=== PATIENT | female | born 1965 | race Two or more races ===

== ENCOUNTER 2016-08-25 12:33 | Emergency (ER) | payer OTHER ==
[2016-08-25 12:44] VITALS: BMI 26.2
--- NOTE | 2016-08-25 13:39 | PDOC ---
*Physical Exam - Vital Signs Last Vital Signs Temp Pulse Resp BP Pulse Ox 98.3 F 63 18 129/77 99 08/25/16 12:40 08/25/16 12:40 08/25/16 12:40 08/25/16 12:40 08/25/16 12:40 - Physical Exam Comments: 08/25/16 13:39 MIDLEVEL NOTE Pt seen by Midlevel Provider under my direct supervision. Pt interviewed and examined. Ancillary studies reviewed. I agree with plan as outlined by Midlevel Provider. 08/25/16 15:20 Laboratory Results - last 24 hr 08/25/16 13:46 Urine Color Straw Urine Appearance Clear Urine pH 7.0 D Ur Specific [place] 1.011 Urine Protein Negative Urine Glucose (UA) Negative Urine Ketones Negative Urine Blood 2+ H Urine Nitrite Negative Urine Bilirubin Negative Urine Urobilinogen Negative Ur Leukocyte Esterase 3+ H Urine RBC 20 Urine WBC 7 Ur Epithelial Cells Rare US - nml pelvic sonogram in pt s/p hysterectomy *DC/Admit/Observation/Transfer Diagnosis at time of Disposition: Bacterial vaginosis - Discharge Dispostion Disposition: HOME Condition at time of disposition: Good - Prescriptions Prescriptions: Metronidazole 500 mg PO BID #14 tablet - Patient Instructions Printed Discharge Instructions: DI for Bacterial Vaginosis Additional Instructions: Please take medication as prescribed and please follow up with your PLAST[employer] MAINTENANCE.
[2016-08-25 14:01] LABS: URINE APPEARANCE CLEAR; URINE BILIRUBIN NEGATIVE (NEGATIVE); URINE COLOR STRAW; URINE GLUCOSE (UA) NEGATIVE (NEGATIVE); URINE KETONE NEGATIVE (NEGATIVE); URINE NITRITE NEGATIVE (NEGATIVE); URINE PROTEIN NEGATIVE (NEGATIVE); URINE UROBILINOGEN NEGATIVE E.U./dl (0.2-1.0)
[2016-08-25 14:08] LABS: URINE BLOOD 2+ (NEGATIVE); URINE LEUK ESTERASE 3+ (NEGATIVE)
[2016-08-25 14:09] LABS: URINE RBC 20 /hpf (0-3); URINE WBC 7 /hpf (3-5)
--- NOTE | 2016-08-25 14:27 | PDOC ---
History of Present Illness - General Chief Complaint: Pain Stated Complaint: LOWER PELVIC PAIN Time Seen by Provider: 08/25/16 13:03 History Source: Patient Exam Limitations: No Limitations - History of Present Illness Travel History: No Initial Comments: 08/25/16 13:22 51-year-old female presents to the ED with complaints of vaginal discharge for the past week and a half which she describes a yellowish green with mild fishy odor. Patient also states started to develop abdominal pain about one week ago with radiation down to her upper thighs and has mild nausea and dizziness when pain occurs. Patient denies aggravating factors for pain, recent sexual intercourse, recent UTIs, recent travel, or history of diabetes. 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 Buck was unavailable . Timing/Duration: reports: intermittent Quality: reports: moderate, cramping Abdominal Pain Onset Location: reports: suprapubic Pain Radiation: reports: other (legs) Activities at Onset: denies: none Aggravating Factors: worse with: None Alleviating Factors: worse with: None Past History - Past Medical History Allergies/Adverse Reactions: Allergies Allergy/AdvReac Type Severity Reaction Status Date / Time Penicillins Allergy Mild Rash Verified 08/25/16 12:44 lactose AdvReac Unknown Uncoded 08/25/16 12:44 Home Medications: Ambulatory Orders NK [No Known Home Medication] 08/25/16 Anemia: Yes Asthma: No Cancer: No Cardiac Disorders: No CVA: No COPD: No CHF: No Dementia: No Diabetes: No GI Disorders: Yes (ULCER, GERD) Disorders: No HTN: No Hypercholesterolemia: No Liver Disease: No Seizures: No Thyroid Disease: No - Surgical History Abdominal Surgery: No Appendectomy: No Cardiac Surgery: No Cholecystectomy: No Lung Surgery: No Neurologic Surgery: No Orthopedic Surgery: No - Immunization History Immunization Up to Date: Yes - Psycho/Social/Smoking Cessation Hx Anxiety: No Suicidal Ideation: No Smoking Status: No Smoking History: Never smoked Have you smoked in the past 12 months: No Number of Cigarettes Smoked Daily: 0 Information on smoking cessation initiated: No Hx Alcohol Use: No Drug/Substance Use Hx: No Substance Use Type: None Hx Substance Use Treatment: No Patient Lives Alone: No Review of Systems - Review of Systems Able to Perform ROS?: Yes Constitutional: No: Symptoms Reported HEENTM: No: Symptoms Reported Respiratory: No: Symptoms reported ABD/GI: Yes: Nausea, Abdominal cramping : Yes: Discharge. No: Dysuria, Flank Pain Musculoskeletal: No: Symptoms Reported Integumentary: No: Symptoms Reported Neurological: Yes: Dizziness (mild with discomfort) Hematologic/Lymphatic: No: Symptoms Reported *Physical Exam - Vital Signs Last Vital Signs Temp Pulse Resp BP Pulse Ox 98.3 F 63 18 129/77 99 08/25/16 12:40 08/25/16 12:40 08/25/16 12:40 08/25/16 12:40 08/25/16 12:40 - Physical Exam General Appearance: Yes: Nourished, Appropriately Dressed. No: Apparent Distress HEENT: negative: Pale Conjunctivae Neck: positive: Supple Respiratory/Chest: positive: Lungs Clear, Normal Breath Sounds. negative: Respiratory Distress, Accessory Muscle Use Cardiovascular: positive: Regular Rhythm, Regular Rate. negative: Murmur Female Pelvic Exam: positive: cervical os closed, normal adnexa, discharge ( yellowish greenish scott discharge with fishy odor noted in canal and around her os). negative: CMT Gastrointestinal/Abdominal: positive: Soft, Tenderness (mid suprapubic mild) Musculoskeletal: negative: CVA Tenderness Extremity: positive: Normal Capillary Refill. negative: Pedal Edema Integumentary: positive: Normal Color, Warm, Moist Neurologic: positive: Motor Strength 5/5 (ambulatory) ED Treatment Course - ADDITIONAL ORDERS Additional order review: Laboratory Results 08/25/16 13:46 Urine Color Straw Urine Appearance Clear Urine pH 7.0 D Ur Specific [place] 1.011 Urine Protein Negative Urine Glucose (UA) Negative Urine Ketones Negative Urine Blood 2+ H Urine Nitrite Negative Urine Bilirubin Negative Urine Urobilinogen Negative Ur Leukocyte Esterase 3+ H Urine RBC 20 Urine WBC 7 Ur Epithelial Cells Rare - RADIOLOGY Radiology Studies Ordered: Category Date Time Status PELVIC / BLADDER US [US] Stat Ultrasound 08/25/16 13:44 Ordered TRANSVAGINAL ULTRASOUND US [US] Stat Ultrasound 08/25/16 13:44 Ordered Medical Decision Making - Medical Decision Making 08/25/16 14:26 Patient complains of vaginal discharge with abdominal pain and mild nausea with pain patient on exam had mid suprapubic tenderness with vaginal discharge consistent with bacterial vaginosis. Patient was ordered for urine, and ultrasound to rule out other etiologies. 08/25/16 14:27 Laboratory Tests 08/25/16 13:46 Urine Blood 2+ H Urine Nitrite Negative Ur Leukocyte Esterase 3+ H Urine RBC 20 Urine WBC 7 Patient states partial hysterectomy 5 years ago secondary to fibroids. urine culture sent 08/25/16 15:49 Ultrasound shows no acute findings and will discharge patient home with Flagyl for treatment of bacterial vaginosis. 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
[2016-08-25 16:05] VITALS: BP 121/79; PULSE 75; TEMP 98
== END 2016-08-25 16:07 | disposition home or self-care (01) ==
LOC: JER 12:33
DX: N76.0 Acute vaginitis (principal); B96.89 Other specified bacterial agents as the cause of diseases classified elsewhere
CPT/HCPCS: 76830-TC; 76856-TC; 81003; 81015; 87086; 99283-25

== ENCOUNTER 2017-06-02 19:35 | Emergency (ER) | payer OTHER ==
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
[2017-06-02 19:53] VITALS: BP 120/81; PULSE 65; TEMP 97.9; BMI 25.0
[2017-06-02] MEDS ORDERED: KETOROLAC TROMETHAMINE 60 MG/2 ML VIAL IM ONE (20:04)
[2017-06-02] MEDS ORDERED: CYCLOBENZAPRINE HCL 10 MG TABLET (FP) ONE (20:05)
[2017-06-02] MEDS ORDERED: KETOROLAC TROMETHAMINE 60 MG/2 ML VIAL ONE (20:05)
[2017-06-02] MEDS ORDERED: CYCLOBENZAPRINE HCL 10 MG TABLET (FP) PO ONE (20:05)
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
== END 2017-06-02 20:09 | disposition home or self-care (01) ==
LOC: JERFT 19:35
PROC: 3E0233Z Introduction of Anti-inflammatory into Muscle, Percutaneous Approach (ICD-10-PCS; principal; 2017-06-02)
DX: V43.52XA Car driver injured in collision with other type car in traffic accident, initial encounter (principal); Y92.411 Interstate highway as the place of occurrence of the external cause; Y93.89 Activity, other specified; Y99.8 Other external cause status
CPT/HCPCS: 99281-25

== ENCOUNTER 2018-03-23 02:17 | Emergency (ER) | payer OTHER ==
[2018-03-23 04:16] VITALS: BMI 25.0
--- NOTE | 2018-03-23 04:57 | PDOC ---
History of Present Illness - History of Present Illness Initial Comments: 03/23/18 04:55 52 yo F with h/o PUD, and anemia who p/w vomiting and abdominal pain. Patient reports acute onset of non positional, non radiating, unremitting, crampy, epigatsric "fullness," beginning at 1200 AM, followed by 3 episodes of bilious, non bloody emesis. Endorses 6+ episodes of loose watery stool, with absent BPR beginning at 1200 AM. No identifiable triggers or alleviators. Patient in normal state of health before falling asleep at 1000 AM. Normal appetite and PO intake. Denies recent travel or change in diet. Patient denies F,C, palpitations, orthopnea, PND, CP, SOB, urinary complaints, , constipation, lightheadedness, weakness, sensory changes. PMHx: as noted above. H/o PUD on endoscopy. H/o nml colonoscopy. Denies chronic NSAID use. Denies h/o abdominal surgery. ROS: as noted SHx: Denies tobacco, IVDA. Social Etoh Allergies: PCN <Drake Hui - Last Filed: 03/23/18 07:24> <Demar Sherman - Last Filed: 03/23/18 12:05> - General Chief Complaint: Pain Stated Complaint: DIARRHEA Time Seen by Provider: 03/23/18 04:53 Past History - Past Medical History Anemia: Yes Asthma: No Cancer: No Cardiac Disorders: No CVA: No COPD: No CHF: No Dementia: No Diabetes: No GI Disorders: Yes (ULCER, GERD) Disorders: No HTN: No Hypercholesterolemia: No Liver Disease: No Seizures: No Thyroid Disease: No Other medical history: Fibromyalgia - Surgical History Abdominal Surgery: No Appendectomy: No Cardiac Surgery: No Cholecystectomy: No Lung Surgery: No Neurologic Surgery: No Orthopedic Surgery: No - Immunization History Immunization Up to Date: Yes - Suicide/Smoking/Psychosocial Hx Smoking Status: No Smoking History: Never smoked Have you smoked in the past 12 months: No Number of Cigarettes Smoked Daily: 0 Information on smoking cessation initiated: No Hx Alcohol Use: No Drug/Substance Use Hx: No Substance Use Type: None Hx Substance Use Treatment: No <Drake Hui - Last Filed: 03/23/18 07:24> <Demar Sherman - Last Filed: 03/23/18 12:05> - Past Medical History Allergies/Adverse Reactions: Allergies Allergy/AdvReac Type Severity Reaction Status Date / Time Penicillins Allergy Mild Rash Verified 03/23/18 04:13 lactose AdvReac Unknown Uncoded 08/25/16 12:44 Home Medications: Ambulatory Orders Pregabalin [Lyrica -] 50 mg PO BID 03/23/18 Review of Systems - Review of Systems Comments:: 03/23/18 04:56 GENERAL/CONSTITUTIONAL: No fever or chills. No weakness. HEAD, EYES, EARS, NOSE AND THROAT: No change in vision. No ear pain or discharge. No sore throat. CARDIOVASCULAR: No chest pain or shortness of breath RESPIRATORY: No cough, wheezing, or hemoptysis. GASTROINTESTINAL: + Abdominal pain, nausea, vomiting, diarrhea. No constipation. GENITOURINARY: No dysuria, frequency, or change in urination. MUSCULOSKELETAL: No joint or muscle swelling or pain. No neck or back pain. SKIN: No rash NEUROLOGIC: No headache, vertigo, loss of consciousness, or change in strength/ sensation. ENDOCRINE: No increased thirst. No abnormal weight change HEMATOLOGIC/LYMPHATIC: No anemia, easy bleeding, or history of blood clots. ALLERGIC/IMMUNOLOGIC: No hives or skin allergy. <Drake Hui - Last Filed: 03/23/18 07:24> *Physical Exam - Vital Signs Last Vital Signs Temp Pulse Resp BP Pulse Ox 98.7 F 106 H 20 93/62 100 03/23/18 04:13 03/23/18 04:13 03/23/18 04:13 03/23/18 04:13 03/23/18 04:13 - Physical Exam Comments: 03/23/18 04:56 GENERAL: Pale appearing. Awake, alert, and fully oriented, in no acute distress HEAD: No signs of trauma, normocephalic, atraumatic EYES: PERRLA, EOMI, sclera anicteric, conjunctiva clear ENT: Hearing grossly normal, nares patent, oropharynx clear without exudates. Moist mucosa NECK: Normal ROM, supple, no lymphadenopathy, JVD, or masses LUNGS: No distress, speaks full sentences, clear to auscultation bilaterally HEART: Regular rate and rhythm, normal S1 and S2, no murmurs, rubs or gallops, peripheral pulses normal and equal bilaterally. ABDOMEN: + Epigastirc ttp, and RUQ ttp. Soft, NDS, normoactive bowel sounds. No guarding, no rebound, no rigidity. No masses. Neg CVA ttp. EXTREMITIES : Normal inspection, Normal range of motion, no edema. No clubbing or cyanosis. SKIN: Warm, Dry, normal turgor, no rashes or lesions noted <Drake Hui - Last Filed: 03/23/18 07:24> - Vital Signs Last Vital Signs Temp Pulse Resp BP Pulse Ox 98.7 F 76 16 100/57 L 100 03/23/18 04:13 03/23/18 08:07 03/23/18 08:07 03/23/18 08:07 03/23/18 08:07 <Demar Sherman - Last Filed: 03/23/18 12:05> ED Treatment Course - LABORATORY CBC & Chemistry Diagram: 03/23/18 05:39 03/23/18 05:39 <Drake Hui - Last Filed: 03/23/18 07:24> - LABORATORY CBC & Chemistry Diagram: 03/23/18 05:39 03/23/18 05:39 - ADDITIONAL ORDERS Additional order review: Laboratory Results 03/23/18 03/23/18 05:39 05:39 Sodium 142 Potassium 3.4 L Chloride 107 Carbon Dioxide 29 Anion Gap 7 L BUN 21 H Creatinine 0.9 Creat Clearance w eGFR > 60 Random Glucose 106 Calcium 9.0 Total Bilirubin 0.9 AST 7 L ALT 21 Alkaline Phosphatase 86 Troponin I < 0.02 Total Protein 7.2 Albumin 3.8 Lipase 129 03/23/18 05:39 RBC 4.13 MCV 92.0 MCHC 32.9 RDW 13.7 MPV 8.2 Neutrophils % 89.1 H D Lymphocytes % 2.5 L D Monocytes % 7.6 Eosinophils % 0.6 Basophils % 0.2 - Medications Given in the ED: ED Medications Discontinued Medications Generic Name Dose Route Start Last Admin Trade Name Freq PRN Reason Stop Dose Admin Al Hydroxide/Mg Hydroxide 30 ml 03/23/18 05:10 03/23/18 05:59 Mylanta Oral Suspension - PO 03/23/18 05:11 30 ml ONCE ONE Administration Famotidine/Sodium Chloride 20 mg in 50 mls @ 100 mls/hr 03/23/18 05:10 05:59 Pepcid 20 Mg Premixed Ivpb - IVPB 03/23/18 05:39 100 mls/hr ONCE ONE Administration Sodium Chloride 1,000 mls @ 1,000 mls/hr 03/23/18 05:10 03/23/18 05:40 Normal Saline - IV 03/23/18 06:09 1,000 mls/hr ASDIR STA Administration Sodium Chloride 1,000 mls @ 1,000 mls/hr 03/23/18 06:47 03/23/18 06:58 Normal Saline - IV 03/23/18 07:46 1,000 mls/hr ASDIR STA Administration Ondansetron HCl 4 mg 03/23/18 05:10 03/23/18 05:59 Zofran Injection IVPUSH 03/23/18 05:11 4 mg ONCE ONE Administration Sucralfate 1 gm 03/23/18 10:00 03/23/18 10:13 Carafate - PO 03/23/18 10:01 1 gm ONCE ONE Administration <Demra Sherman - Last Filed: 03/23/18 12:05> Medical Decision Making - Medical Decision Making 03/23/18 05:12 52 yo F with h/o PUD, and anemia who p/w acute epigastria "fullness," vomiting , and diarrhea, beginning at 1200 AM. HR 106, vitals otherwise wnl, AF. + Epigastric ttp. Possible gastritis vs. biliary dz. Will also consider pancreatitis. Differential also includes divertictulitis, appendicitis, colitis. Low suspicion mesenteric ischemia, AAA, Ao dissection. Ed Course: CBC, CMP, Lipase, UA Zofran, Maloox, Carafte, Famotidine, NS EKG, RUQ U/S 03/23/18 06:41 EKG: NSR with absent KATIE, STD. Normal interval duration and axis. CBC,CMP: Unremarkable Lipase: Neg 03/23/18 07:07 Pt. in ED Obs [place]. Patient signed out to day team. Pending RUQ U/S. Patient Stable. <Drake Hui - Last Filed: 03/23/18 07:24> *DC/Admit/Observation/Transfer - Attestations Physician Attestion: 03/23/18 04:56 I attest to the information provided in this note. <Drake Hui - Last Filed: 03/23/18 07:24> - Discharge Dispostion Decision to Admit order: No <Demar Sherman - Last Filed: 03/23/18 12:05> Diagnosis at time of Disposition: Epigastric abdominal pain Nausea & vomiting Qualifiers: Vomiting type: unspecified Vomiting Intractability: non-intractable Qualified Code(s): R11.2 - Nausea with vomiting, unspecified - Discharge Dispostion Disposition: HOME Condition at time of disposition: Stable
[2018-03-23] MEDS ORDERED: ONDANSETRON 4 MG/2 ML VIAL IVPUSH ONE (05:10)
[2018-03-23] MEDS ORDERED: MAG HYDROX/AL HYDROX/SIMETH 30 ML UNIT-DOSE CUP PO ONE (05:10)
[2018-03-23] MEDS ORDERED: FAMOTIDINE 20 MG/50 ML IVPB 20 MG/50 ML MG IVPB ONE ×2 (05:10→05:51)
[2018-03-23] MEDS ORDERED: SODIUM CHLORIDE 1,000 ML IV STA ×3 (05:10→11:13)
[2018-03-23 05:44] LABS: BASO % 0.2 % (0-2.0); EOS % 0.6 % (0-4.5); HEMOGLOBIN 12.5 GM/dL (10.7-15.3); LYMPH % 2.5 % (8-40); MCH 30.3 pg (25.7-33.7); MCHC 32.9 g/dl (32.0-36.0); MEAN PLT VOLUME 8.2 fl (7.5-11.1); MONO % 7.6 % (3.8-10.2); NEUT % 89.1 % (42.8-82.8); PLATELET COUNT 209 K/MM3 (134-434); RBC 4.13 M/mm3 (3.60-5.2); RDW 13.7 % (11.6-15.6); WHITE BLOOD COUNT 9.6 K/mm3 (4.0-10.0)
--- NOTE | 2018-03-23 05:45 | PDOC ---
Attending Attestation - Resident Resident Name: EzDuDrake - ED Attending Attestation I have performed the following: I have examined & evaluated the patient, The case was reviewed & discussed with the resident, I agree w/resident's findings & plan, Exceptions are as noted - HPI HPI: 03/23/18 06:38 52yo F hx PUD, anemia presents with epigastric abd pain a/w N/V since this morning. Emesis is NBNB. Pt also reports 6 episodes of non bloody brown stools since this AM. No treatments tried. No recent travel. No recent excessive NSAID or etoh use. Sxs not worse postprandially. Denies sick contacts. Reports similar pain in the past in the epigastric area but not as severe. Denies trauma. Denies urinary symptoms, vaginal dc. Has no known hx of gallstones. - Physicial Exam PE: 03/23/18 06:49 GENERAL: Awake, alert, and fully oriented, in no acute distress EYES: PERRLA, sclera anicteric, conjunctiva clear ENT: Dry MM NECK: Normal ROM, supple, no lymphadenopathy, JVD, or masses LUNGS: Breath sounds equal, clear to auscultation bilaterally. No wheezes, and no crackles HEART: Tachycardic but regular to 102, normal S1 and S2, no murmurs, rubs or gallops ABDOMEN: Soft, +epigastric and RUQ ttp normoactive bowel sounds. No guarding, no rebound. No masses EXTREMITIES: Normal range of motion, no edema. WWP NEUROLOGICAL: Normal speech, cranial nerves intact, 5/5 strength in all 4 extremities, normal sensation to light touch in all 4 extremities SKIN: Warm, Dry, normal turgor, no rashes or lesions noted. - Medical Decision Making 03/23/18 06:52 52yo F hx PUD presents to the ED with abd pain, N/V. Pt mildly tachycardic to 106, other vitals wnl. Exam with epigastric and RUQ ttp. DDx includes cholecystitis vs pancreatitis vs gastritis. No lower abd pain. No CVAT. Labs thus far unremarkable. Pt is pending RUQ US, has been placed on ED obs until US available. Pt signed out to day team for f/u on diagnostics and reassessment. Heart Score/ECG Review #1 03/23/18 06:51 Twelve-lead EKG was performed and reviewed by me. Normal sinus rhythm, rate 76. Normal axis and intervals. No ST elevations.
[2018-03-23] MEDS ORDERED: ONDANSETRON 4 MG/2 ML VIAL ONE (05:51)
[2018-03-23] MEDS ORDERED: MAG HYDROX/AL HYDROX/SIMETH 30 ML UNIT-DOSE CUP ONE (05:51)
[2018-03-23 06:20] LABS: ALBUMIN 3.8 g/dl (3.4-5.0); ALK PHOS 86 U/L (45-117); ANION GAP 7 MMOL/L (8-16); BILIRUBIN,TOTAL 0.9 mg/dL (0.2-1); BLOOD UREA NITROGEN 21 mg/dL (7-18); CHLORIDE 107 mmol/L (98-107); CO2 29 mmol/L (21-32); CREATININE 0.9 mg/dL (0.55-1.3); GLUCOSE,RANDOM 106 mg/dL (74-106); POTASSIUM 3.4 mmol/L (3.5-5.1); SGOT/AST 7 U/L (15-37); SGPT/ALT 21 U/L (13-61); SODIUM 142 mmol/L (136-145); TOT PROT 7.2 g/dl (6.4-8.2)
[2018-03-23] MEDS ORDERED: SUCRALFATE 1 GM TABLET (FP) PO ONE (10:00)
[2018-03-23] MEDS ORDERED: SUCRALFATE 1 GM TABLET (FP) ONE (10:09)
[2018-03-23 10:46] LABS: URINE APPEARANCE CLEAR; URINE BILIRUBIN NEGATIVE (<2.0 mg/dL); URINE COLOR YELLOW; URINE GLUCOSE (UA) NEGATIVE (NEGATIVE); URINE KETONE NEGATIVE (NEGATIVE); URINE LEUK ESTERASE NEGATIVE (NEGATIVE); URINE NITRITE NEGATIVE (NEGATIVE); URINE PROTEIN NEGATIVE (NEGATIVE); URINE UROBILINOGEN NEGATIVE mg/dL (0.2-1.0)
[2018-03-23 10:51] LABS: URINE HYALINE CAST 1 /lpf; URINE MUCUS FEW
--- NOTE | 2018-03-23 11:54 | EKG ---
Test Reason : Blood Pressure : / mmHG Vent. Rate : 076 BPM Atrial Rate : 076 BPM P-R Int : 158 ms QRS Dur : 108 ms QT Int : 406 ms P-R-T Axes : 072 018 067 degrees QTc Int : 456 ms NORMAL SINUS RHYTHM NONSPECIFIC T WAVE ABNORMALITY ABNORMAL ECG WHEN COMPARED WITH ECG OF 09-SEP-2015 09:54, QT HAS LENGTHENED Confirmed by PATTIE NASCIMENTO, HERLINDA ([id number]) on 03/23/2018 11:54:22 AM Referred By: Confirmed By:HERLINDA BLNAKENSHIP MD
--- NOTE | 2018-03-23 12:11 | PDOC ---
*Physical Exam - Vital Signs Last Vital Signs Temp Pulse Resp BP Pulse Ox 98.7 F 76 16 100/57 L 100 03/23/18 04:13 03/23/18 08:07 03/23/18 08:07 03/23/18 08:07 03/23/18 08:07 ED Treatment Course - LABORATORY CBC & Chemistry Diagram: 03/23/18 05:39 03/23/18 05:39 - ADDITIONAL ORDERS Additional order review: Laboratory Results 03/23/18 03/23/18 05:39 05:39 Sodium 142 Potassium 3.4 L Chloride 107 Carbon Dioxide 29 Anion Gap 7 L BUN 21 H Creatinine 0.9 Creat Clearance w eGFR > 60 Random Glucose 106 Calcium 9.0 Total Bilirubin 0.9 AST 7 L ALT 21 Alkaline Phosphatase 86 Troponin I < 0.02 Total Protein 7.2 Albumin 3.8 Lipase 129 03/23/18 05:39 RBC 4.13 MCV 92.0 MCHC 32.9 RDW 13.7 MPV 8.2 Neutrophils % 89.1 H D Lymphocytes % 2.5 L D Monocytes % 7.6 Eosinophils % 0.6 Basophils % 0.2 - Medications Given in the ED: ED Medications Discontinued Medications Generic Name Dose Route Start Last Admin Trade Name Freq PRN Reason Stop Dose Admin Al Hydroxide/Mg Hydroxide 30 ml 03/23/18 05:10 03/23/18 05:59 Mylanta Oral Suspension - PO 03/23/18 05:11 30 ml ONCE ONE Administration Famotidine/Sodium Chloride 20 mg in 50 mls @ 100 mls/hr 03/23/18 05:10 05:59 Pepcid 20 Mg Premixed Ivpb - IVPB 03/23/18 05:39 100 mls/hr ONCE ONE Administration Sodium Chloride 1,000 mls @ 1,000 mls/hr 03/23/18 05:10 03/23/18 05:40 Normal Saline - IV 03/23/18 06:09 1,000 mls/hr ASDIR STA Administration Sodium Chloride 1,000 mls @ 1,000 mls/hr 03/23/18 06:47 03/23/18 06:58 Normal Saline - IV 03/23/18 07:46 1,000 mls/hr ASDIR STA Administration Ondansetron HCl 4 mg 03/23/18 05:10 03/23/18 05:59 Zofran Injection IVPUSH 03/23/18 05:11 4 mg ONCE ONE Administration Sucralfate 1 gm 03/23/18 10:00 03/23/18 10:13 Carafate - PO 03/23/18 10:01 1 gm ONCE ONE Administration *DC/Admit/Observation/Transfer Diagnosis at time of Disposition: Epigastric abdominal pain Nausea & vomiting Qualifiers: Vomiting type: unspecified Vomiting Intractability: non-intractable Qualified Code(s): R11.2 - Nausea with vomiting, unspecified - Discharge Dispostion Disposition: HOME Condition at time of disposition: Stable Decision to Admit order: No - Referrals Referrals: Keke Lincoln MD [Primary Care Provider] - - Patient Instructions Printed Discharge Instructions: DI for Abdominal Pain-Adult Additional Instructions: Please return to the emergency department with any new or worsening symptoms or concerns. Please follow up with your primary care physician within 72 hours. - Post Discharge Activity
[2018-03-23 12:47] VITALS: BP 93/64; PULSE 66; TEMP 98.1
== END 2018-03-23 16:37 | disposition home or self-care (01) ==
LOC: JER 02:17 → JERBED 06:58 → UNDOADMOB 06:58 → JER 16:37
PROC: 3E033GC Introduction of Other Therapeutic Substance into Peripheral Vein, Percutaneous Approach (ICD-10-PCS; principal; 2018-03-23)
PROC: 3E0337Z Introduction of Electrolytic and Water Balance Substance into Peripheral Vein, Percutaneous Approach (ICD-10-PCS; 2018-03-23)
DX: R11.2 Nausea with vomiting, unspecified (principal); M79.7 Fibromyalgia
CPT/HCPCS: 36415; 76705-TC; 80053; 81003; 81015; 83690; 84484; 85025; 93005; 93010; 96361; 96365; 96375; 99284-25; J7030

== ENCOUNTER 2021-09-10 20:42 | Emergency (ER) | payer OTHER ==
[2021-09-10 20:56] VITALS: BP 120/87; PULSE 63; TEMP 98.6; BMI 24.0
[2021-09-10] MEDS ORDERED: IBUPROFEN 600 MG TABLET (FP) PO ONE (22:05)
== END 2021-09-10 22:56 | disposition home or self-care (01) ==
LOC: JERFT 20:42
DX: S82.831A Other fracture of upper and lower end of right fibula, initial encounter for closed fracture (principal); X50.9XXA Other and unspecified overexertion or strenuous movements or postures, initial encounter
CPT/HCPCS: 73610-TC-LT-FY; 73630-TC-LT; 99283-25

== ENCOUNTER 2022-09-11 23:22 | Emergency (ER) | payer OTHER ==
[2022-09-11 23:29] VITALS: BP 134/83; PULSE 65; RESP 18; TEMP 98; BMI 25.7
[2022-09-12] MEDS ORDERED: KETOROLAC TROMETHAMINE 60 MG/2 ML VIAL IM ONE (00:09)
[2022-09-12] MEDS ORDERED: LIDOCAINE 5% TOPICAL PATCH TP ONE (00:09)
[2022-09-12] MEDS ORDERED: METHOCARBAMOL 500 MG TABLET PO ONE (00:10)
[2022-09-12] MEDS ORDERED: LIDOCAINE 5% TOPICAL PATCH ONE (00:33)
[2022-09-12] MEDS ORDERED: METHOCARBAMOL 500 MG TABLET ONE (00:34)
[2022-09-12] MEDS ORDERED: KETOROLAC TROMETHAMINE 60 MG/2 ML VIAL ONE (00:34)
[2022-09-12 01:20] LABS: EPI CELLS 2 /uL (0-25.1); HYALINE CASTS 0 /uL (0-3.1); PH,URINE 7.5 (5.0-8.0); URINE APPEARANCE CLEAR; URINE BACTERIA 6 /uL (0-1359); URINE BILIRUBIN NEGATIVE (NEGATIVE); URINE COLOR YELLOW; URINE GLUCOSE (UA) NEGATIVE (NEGATIVE); URINE KETONE NEGATIVE (NEGATIVE); URINE LEUK ESTERASE NEGATIVE (NEGATIVE); URINE NITRITE NEGATIVE (NEGATIVE); URINE PROTEIN NEGATIVE (NEGATIVE); URINE RBC 135 /uL (0-23.9); URINE UROBILINOGEN 0.2 mg/dL (0.2-1.0); URINE WBC 10 /uL (0-25.8)
[2022-09-12] MEDS ORDERED: diazePAM 5 MG TABLET PO ONE (02:12)
[2022-09-12] MEDS ORDERED: diazePAM 5 MG TABLET ONE (02:16)
[2022-09-12] MEDS ORDERED: LIDOCAINE PATCH REMOVAL MC ONE (13:00)
== END 2022-09-12 03:08 | disposition home or self-care (01) ==
LOC: JER 23:22
PROC: 3E023GC Introduction of Other Therapeutic Substance into Muscle, Percutaneous Approach (ICD-10-PCS; principal; 2022-09-11)
DX: M54.50 Low back pain, unspecified (principal)
CPT/HCPCS: 72131-TC; 81003; 99284-25